=== PATIENT | male | born 1965 | race Caucasian/White ===

== ENCOUNTER 2020-05-05 10:50 | Emergency (ER) | payer BC, OTHER ==
[2020-05-05 11:12] VITALS: BMI 33.3
[2020-05-05] MEDS ORDERED: BAMLANIVIMAB 700 MG in SODIUM CHLORIDE 180 ML IVPB ONE (11:39)
[2020-05-05 12:40] LABS: BASO % 0.2 % (0-2.0); EOS % 0.3 % (0-4.5); HEMATOCRIT 43.6 % (35.4-49); LYMPH % 7.4 % (8-40); MCH 28.4 pg (25.7-33.7); MCHC 34.4 g/dl (32.0-35.9); MEAN CELL VOLUME 82.4 fl (80-96); MEAN PLT VOLUME 8.2 fl (7.5-11.1); MONO % 5.9 % (3.8-10.2); NEUT % 86.2 % (42.8-82.8); PLATELET COUNT 163 K/MM3 (134-434); RBC 5.29 M/mm3 (4.00-5.60); RDW 13.7 % (11.9-15.9); WHITE BLOOD COUNT 6.9 K/mm3 (4.0-10.0)
[2020-05-05 13:00] LABS: POTASSIUM 4.1 mmol/L (3.5-5.1)
[2020-05-05 13:02] LABS: ALBUMIN 3.4 g/dl (3.4-5.0); BLOOD UREA NITROGEN 13.7 mg/dL (7-18); CALCIUM 8.2 mg/dL (8.5-10.1)
[2020-05-05 13:06] LABS: CREATININE 0.9 mg/dL (0.55-1.3)
[2020-05-05 13:07] LABS: BILIRUBIN,TOTAL 0.6 mg/dL (0.2-1); TOT PROT 7.1 g/dl (6.4-8.2)
[2020-05-05 16:32] VITALS: TEMP 98.1
[2020-05-05 17:03] VITALS: BP 132/78; PULSE 76
== END 2020-05-05 17:08 | disposition home or self-care (01) ==
LOC: JER 10:50
DX: U07.1 COVID-19 (principal)
CPT/HCPCS: 36415; 71046-TC-FY; 80053; 85025; 99284-25; M0239; Q0239